=== PATIENT | female | born 1975 ===

== ENCOUNTER 2021-09-04 09:00 | Outpatient (CLI) | payer OTHER | END 2021-09-04 09:30 | disposition home or self-care (01) | LOC: PPH VACUNA 09:00 | PROVIDERS: ATTEND Emergency Medicine Pediatric Emergency Medicine | DX: Z23 Encounter for immunization (principal) ==

== ENCOUNTER 2021-10-02 11:24 | Outpatient (CLI) | payer OTHER | END 2021-10-02 11:35 | disposition home or self-care (01) | LOC: SONOGRAMA 11:24 | PROVIDERS: ATTEND Emergency Medicine Pediatric Emergency Medicine | DX: E04.1 Nontoxic single thyroid nodule (principal); J98.4 Other disorders of lung; I10 Essential (primary) hypertension ==

== ENCOUNTER 2021-10-29 13:07 | Outpatient (CLI) | payer OTHER | END 2021-10-29 13:10 | disposition home or self-care (01) | LOC: LAB 13:07 | DX: U07.1 COVID-19 (principal) ==

== ENCOUNTER → 2021-12-05 07:16 | Outpatient (CLI) | payer OTHER | END | disposition home or self-care (01) | LOC: LAB 07:16 | PROVIDERS: ATTEND Internal Medicine | DX: E04.1 Nontoxic single thyroid nodule (principal); J98.4 Other disorders of lung ==

== ENCOUNTER 2021-12-12 08:00 | Outpatient (CLI) | payer OTHER | END 2021-12-12 08:30 | disposition home or self-care (01) | LOC: PPH VACUNA 08:00 | PROVIDERS: ATTEND Emergency Medicine Pediatric Emergency Medicine | DX: Z23 Encounter for immunization (principal) ==

== ENCOUNTER 2022-03-25 06:48 | Outpatient (CLI) | payer OTHER | END 2022-03-25 06:56 | disposition home or self-care (01) | LOC: LAB 06:48 | PROVIDERS: ATTEND Colon & Rectal Surgery | DX: K92.1 Melena (principal); R19.4 Change in bowel habit; Z03.818 Encounter for observation for suspected exposure to other biological agents ruled out ==